=== PATIENT | female | born 1945 | race American Indian/Alaskan Native ===

== ENCOUNTER 2020-08-29 09:41 | Day surgery (SDC) | payer OTHER ==
[~2020-08-29] VITALS: Ht 154.9 cm; Wt 67.5 kg
[~2020-08-29 09:41] MED LIST: ALBU90OI6 INH; ENAL10 PO; ESCI10 PO; LORA.5 PO; Loratadine10 MG PO; MULTIVITAMINS1 EAC3 PO
== END 2020-08-29 11:29 | disposition home or self-care (01) ==
LOC: ORSCSDS 09:41
PROVIDERS: Student in an Organized Health Care Education/Training Program
PROC: 0DB68ZX Excision of Stomach, Via Natural or Artificial Opening Endoscopic, Diagnostic (ICD-10-PCS; principal; 2020-08-29 11:00)
PROC: 0DB48ZX Excision of Esophagogastric Junction, Via Natural or Artificial Opening Endoscopic, Diagnostic (ICD-10-PCS; principal; 2020-08-29 11:00)
DX: K21.9 Gastro-esophageal reflux disease without esophagitis (principal); I10 Essential (primary) hypertension; K44.9 Diaphragmatic hernia without obstruction or gangrene; K22.2 Esophageal obstruction; K29.70 Gastritis, unspecified, without bleeding; Z79.899 Other long term (current) drug therapy
CPT/HCPCS: 88305; 88312; 88342; J2704; J7120